=== PATIENT | male | born 1950 | race Caucasian/White ===

== ENCOUNTER 2024-01-21 08:24 | Outpatient (CLI) | payer MEDICARE ==
[2024-01-21 14:42] LABS: BASOPHILS % (AUTO) 0.7 %; EOSINOPHILS # (AUTO) 0.2 10^3/uL (0.0-0.7); EOSINOPHILS % (AUTO) 3.9 %; HCT - HEMATOCRIT 40.9 % (42.0-52.0); HGB - HEMOGLOBIN 12.8 g/dL (14.0-18.0); LYMPHOCYTES # (AUTO) 1.5 10^3/uL (1.5-3.5); LYMPHOCYTES % (AUTO) 31.7 %; MEAN CORPUSCULAR HEMOGLOBIN 31.8 pg (27.0-31.0); MEAN CORPUSCULAR HGB CONC 31.3 g/dL (32.0-36.0); MEAN CORPUSCULAR VOLUME 101.7 fL (80.0-94.0); MEAN PLATELET VOLUME 9.2 fL (7.4-11.4); MONOCYTES # (AUTO) 0.4 10^3/uL (0.0-1.0); MONOCYTES % (AUTO) 8.8 %; NEUTROPHILS # (AUTO) 2.5 10^3/uL (1.5-6.6); NEUTROPHILS % (AUTO) 54.7 %; PLT - PLATELET COUNT 205 10^3/uL (130-450); RED BLOOD COUNT 4.02 10^6/uL (4.70-6.10); RED CELL DISTRIBUTION WIDTH 12.6 % (12.0-15.0); WHITE BLOOD COUNT 4.6 x10^3/uL (4.8-10.8)
[2024-01-21 14:54] LABS: ALBUMIN 4.2 g/dL (3.2-5.5); ALBUMIN/GLOBULIN RATIO 1.7 (1.0-2.2); BILIRUBIN,TOTAL 0.4 mg/dL (0.2-1.0); CALCIUM 9.7 mg/dL (8.5-10.3); POTASSIUM 4.5 mmol/L (3.5-4.5); TOTAL PROTEIN 6.7 g/dL (6.4-8.9)
[2024-01-21 15:13] LABS: BILIRUBIN,URINE NEGATIVE (NEGATIVE); GLUCOSE, URINE (UA) NEGATIVE (NEGATIVE); KETONES,URINE (UA) NEGATIVE (NEGATIVE); LEUKOCYTE ESTERASE, URINE NEGATIVE (NEGATIVE); NITRITE,URINE NEGATIVE (NEGATIVE); OCCULT BLOOD,URINE NEGATIVE (NEGATIVE); PROTEIN,URINE NEGATIVE (NEGATIVE); UROBILINOGEN,URINE 0.2 (NORMAL) E.U./dL (NORMAL)
[2024-01-21 16:01] LABS: CLARITY,URINE CLEAR (CLEAR)
[2024-01-21 16:02] LABS: BACTERIA,URINE Rare /HPF (None Seen); EPITHELIAL CELLS,UR RARE Renal Tubular /HPF (<= Few); RBC,URINE None Seen /HPF (0-5); SQUAMOUS EPITHELIAL CELL,UR RARE Squamous (<= Few); WBC,URINE 0-3 /HPF (0-3)
== END 2024-01-21 08:25 | disposition home or self-care (01) ==
LOC: LAB.S 08:24
PROVIDERS: ATTEND Internal Medicine
DX: R10.814 Left lower quadrant abdominal tenderness (principal); R82.90 Unspecified abnormal findings in urine
CPT/HCPCS: 36415; 80053; 81001; 85025; 87086

== ENCOUNTER 2024-02-03 10:58 | Outpatient (CLI) | payer MEDICARE ==
--- NOTE | 2024-02-03 20:26 | Ultrasound Report ---
PROCEDURE: Abdomen Complete INDICATIONS: LLQ ABDOMINAL TENDERNESS, UPPER BACK PAIN TECHNIQUE: Real-time scanning was performed of the abdominal and retroperitoneal organs, with image documentatio n. COMPARISON: None. FINDINGS: Liver: Liver is normal in size and homogeneous in echotexture. Gallbladder: No gallstones, sludge, wall thickening or pericholecystic edema. Biliary ducts: Intrahepatic bile ducts are non-dilated. Extrahepatic bile duct caliber measures mm. Normal is 6-7 mm or less in diameter, or 10 mm or less post-cholecystectomy. Pancreas: The pancreas is poorly characterized due to overlying bowel gas. Spleen: Spleen is normal in size and homogeneous in echotexture. Kidneys: Kidneys are normal in size and echotexture. Right kidney measures 10.6 cm long; left kidne y measures 10.6 cm long. No hydronephrosis or nephrolithiasis. No solid masses. No complex renal cy stic lesions which require follow-up. Aorta: Visualized aorta is normal in caliber at less than 3 cm. The proximal aorta is not visualize d. Iliacs: Iliacs are not visualized. IVC: Intrahepatic inferior vena cava is patent. Miscellaneous: No free abdominal fluid. IMPRESSION: No cholelithiasis or findings to suggest choledocholithiasis or acute cholecystitis. Reviewed by: Sushma Ernst MD on 02/03/2024 8:25 PM PDT Approved by: Sushma Ernst MD on 02/03/2024 8:25 PM PDT Station ID: [id number]
== END 2024-02-03 10:59 | disposition home or self-care (01) ==
LOC: DI 10:58
PROVIDERS: ATTEND Internal Medicine
DX: R10.814 Left lower quadrant abdominal tenderness (principal); M54.9 Dorsalgia, unspecified

== ENCOUNTER 2024-03-12 14:23 | Outpatient (CLI) | payer MEDICARE ==
--- NOTE | 2024-03-12 15:51 | XRAY Report ---
PROCEDURE: Lumbar Spine 4V INDICATIONS: UPPER BACK PAIN TECHNIQUE: 6 views of the lumbar spine were acquired. COMPARISON: None. FINDINGS: Surgical change: None. Bones: 5 [id number] vertebrae are present. There is normal bony alignment. No vertebral body co mpression fractures. No suspicious bony lesions. Moderate disc height loss at L4-5, L5-S1. Facet art hrosis of L3-S1. Soft tissues: Overlying bowel gas pattern is normal. No suspicious soft tissue calcifications. IMPRESSION: Mild to moderate, multilevel degenerative disc disease and lower lumbar facet arthrosis. Reviewed by: Hakeem Moore MD on 03/12/2024 3:49 PM PDT Approved by: Hakeem Moore MD on 03/12/2024 3:49 PM PDT Station ID: [id number]
--- NOTE | 2024-03-12 15:52 | XRAY Report ---
PROCEDURE: Thoracic Spine 2V INDICATIONS: UPPER BACK PAIN TECHNIQUE: 2 views of the thoracic spine were acquired. COMPARISON: None. FINDINGS: Bones: Wedge deformity of the T6 vertebral body. Mild rightward curvature centered at T7. No suspicio us bony lesions. 12 pairs of ribs are noted, and appear intact where visualized. Soft tissues: No paravertebral stripe thickening. IMPRESSION: Age-indeterminate wedge compression deformity of the T6 vertebral body. Reviewed by: Hakeem Moore MD on 03/12/2024 3:50 PM PDT Approved by: Hakeem Moore MD on 03/12/2024 3:50 PM PDT Station ID: [id number]
--- NOTE | 2024-03-12 15:53 | XRAY Report ---
PROCEDURE: Cervical Spine 2-3V INDICATIONS: UPPER BACK PAIN TECHNIQUE: 3 view(s) of the cervical spine were acquired. COMPARISON: None. FINDINGS: Bones: No fractures or dislocations to the T1 level. The lateral masses of C1 appear intact on the odontoid view. No suspicious bony lesions. Moderate disc height loss at C5-6, C6-7. Mild disc heigh t loss at remaining levels. Diffuse facet arthrosis, most prominent on the left. Soft tissues: No prevertebral soft tissue swelling. IMPRESSION: Mild to moderate, multilevel degenerative disc disease and diffuse facet arthrosis. Reviewed by: Hakeem Moore MD on 03/12/2024 3:51 PM PDT Approved by: Hakeem Moore MD on 03/12/2024 3:51 PM PDT Station ID: [id number]
== END 2024-03-12 14:24 | disposition home or self-care (01) ==
LOC: DI.S 14:23
PROVIDERS: ATTEND Internal Medicine
DX: M47.812 Spondylosis without myelopathy or radiculopathy, cervical region (principal); M50.022 Cervical disc disorder at C5-C6 level with myelopathy; M50.122 Cervical disc disorder at C5-C6 level with radiculopathy; M48.54XA Collapsed vertebra, not elsewhere classified, thoracic region, initial encounter for fracture; M47.816 Spondylosis without myelopathy or radiculopathy, lumbar region; M51.36 Other intervertebral disc degeneration, lumbar region

== ENCOUNTER 2024-04-16 10:14 | Outpatient (CLI) | payer MEDICARE ==
--- NOTE | 2024-04-16 16:22 | XRAY Report ---
PROCEDURE: Femur 2+V RT (Weight Bearing) INDICATIONS: RIGHT HIP PAIN TECHNIQUE: 2 views of the femur were obtained. COMPARISON: None. FINDINGS: No visualized fracture or dislocation. No suspicious osseous lesions. Arthritic changes are present w ithin the hips and knees. IMPRESSION: Arthritic changes as above. Reviewed by: Becca Maria MD on 04/16/2024 4:21 PM PDT Approved by: Becca Maria MD on 04/16/2024 4:21 PM PDT Station ID: [id number]
== END 2024-04-16 10:15 | disposition home or self-care (01) ==
LOC: DI.S 10:14
PROVIDERS: ATTEND Internal Medicine
DX: M16.0 Bilateral primary osteoarthritis of hip (principal); M17.0 Bilateral primary osteoarthritis of knee

== ENCOUNTER 2024-05-09 09:50 | Outpatient (CLI) | payer MEDICARE ==
--- NOTE | 2024-05-09 11:21 | MRI Report ---
PROCEDURE: Lumbar Spine WO INDICATIONS: R LEG WEAKNESS TECHNIQUE: Noncontrast sagittal T1 spin echo and T2 fast echo, sagittal STIR, axial T1 and T2 fast spin echo thr ough the lumbar spine. In cases with scoliosis, additional coronal T2 fast spin echo may be performe d. COMPARISON: Lumbar spine plain films dated 03/12/2024. FINDINGS: Image quality: Excellent. Alignment and Curvature: There is normal bony alignment. Bone Marrow: Marrow is of normal overall signal. No acute vertebral body compression fractures. Spinal Cord: Conus medullaris terminates at the L1-L2 level. Visualized cord demonstrates normal si gnal and size. Paraspinous Soft Tissues: No paravertebral masses. T11-T12: Mild right posterior lateral disc protrusion. Disc material abuts the cord. Mild canal steno sis. No significant foraminal stenosis. T12-L1: No canal stenosis or foraminal stenosis. L1-L2: No canal stenosis or foraminal stenosis. L2-L3: Disc bulge. Mild facet hypertrophy. No canal stenosis or significant foraminal stenosis. L3-L4: Disc bulge. Mild facet hypertrophy. No canal stenosis or significant foraminal stenosis. L4-L5: Moderate chronic disc height loss. Disc bulge. Facet hypertrophy. There is moderate to sever e bilateral foraminal narrowing with a degree of bilateral foraminal L4 nerve root impingement. L5-S1: Chronic disc height loss. Disc bulge. Facet hypertrophy. No canal stenosis. Moderate to christopher re right foraminal narrowing with a degree of right foraminal L5 nerve root impingement. Moderate lef t foraminal narrowing. IMPRESSION: 1. Multilevel underlying facet arthropathy. 2. No canal stenosis. 3. Multilevel foraminal narrowing as described above. Findings include moderate to severe bilateral f oraminal narrowing at L4-L5 and moderate to severe right foraminal narrowing at L5-S1. Reviewed by: Carlos Manning MD on 05/09/2024 11:20 AM PDT Approved by: Carlos Manning MD on 05/09/2024 11:20 AM PDT Station ID: [id number]
== END 2024-05-09 09:51 | disposition home or self-care (01) ==
LOC: DI 09:50
PROVIDERS: ATTEND Internal Medicine
DX: M51.36 Other intervertebral disc degeneration, lumbar region (principal); M48.061 Spinal stenosis, lumbar region without neurogenic claudication; M51.37 Other intervertebral disc degeneration, lumbosacral region; M48.07 Spinal stenosis, lumbosacral region; M47.27 Other spondylosis with radiculopathy, lumbosacral region; M47.26 Other spondylosis with radiculopathy, lumbar region